=== PATIENT | male | born 1990 | race Caucasian/White ===

== ENCOUNTER 2020-07-03 18:20 | Emergency (ER) | payer SELFPAY ==
[~2020-07-03] VITALS: Ht 177.8 cm; Wt 94.8 kg
[2020-07-03 18:26] VITALS: Ht 177.8 cm; Wt 94.8 kg
[2020-07-03 19:35] VITALS: BP 164/98
== END 2020-07-03 19:35 | disposition home or self-care (01) ==
LOC: ED 18:20
DX: S61.216A Laceration without foreign body of right little finger without damage to nail, initial encounter (principal); W26.8XXA Contact with other sharp object(s), not elsewhere classified, initial encounter; Y93.89 Activity, other specified; Y92.89 Other specified places as the place of occurrence of the external cause; Y99.8 Other external cause status
CPT/HCPCS: 90715; J2001